=== PATIENT | female | born 1935 | race Hispanic/Latino ===

== ENCOUNTER 2021-07-14 11:29 | Emergency (ER) | payer MEDICARE ==
[~2021-07-14] VITALS: Ht 154.9 cm; Wt 51.7 kg
[2021-07-14 12:24] LABS: BASOPHILS % (AUTO) 0.1 % (0.0-5.0); HEMATOCRIT 39.3 % (36-48); LYMPHOCYTES % (AUTO) 10.9 % (21.0-51.0); MEAN CORPUSCULAR HEMOGLOBIN 27.1 pg (27.0-33.0); MEAN CORPUSCULAR HGB CONC 32.6 g/dL (32.0-36.0); MEAN CORPUSCULAR VOLUME 83.3 fL (79-99); MONOCYTES % (AUTO) 6.2 % (3.0-13.0); NEUTROPHILS % (AUTO) 82.4 % (40.0-77.0); PLATELET COUNT (AUTO) 212 K/uL (130-400); RED BLOOD CELL COUNT(AUTO) 4.72 MIL/uL (4.00-5.50); RED CELL DISTRIBUTION WIDTH 14.7 % (11.0-15.5); WHITE BLOOD COUNT (AUTO) 8.5 K/uL (4.8-10.8)
[2021-07-14] MEDS ORDERED: LACTATED RINGERS 1000ML 1,000 ML IV ONE (12:30)
[2021-07-14 12:50] LABS: POTASSIUM 3.3 mmol/L (3.5-5.1)
[2021-07-14 13:01] LABS: BILIRUBIN,TOTAL 0.4 mg/dL (0.2-1.0); TOTAL PROTEIN, SERUM 7.8 g/dL (6.0-8.3)
[2021-07-14 13:29] LABS: APPEARANCE,URINE Clear (CLEAR); BILIRUBIN,URINE Negative (NEGATIVE); COLOR,URINE Yellow (YELLOW); GLUCOSE, URINE (UA) Negative (NEGATIVE); KETONES,URINE 15 mg/dL (NEGATIVE); LEUKOCYTE ESTERASE ,URINE Negative (NEGATIVE); NITRATE,URINE Negative (NEGATIVE); OCCULT BLOOD,URINE Trace (NEGATIVE); PROTEIN,URINE Negative (NEGATIVE); UROBILINOGEN,URINE 0.2 mg/dL (0.2-1.0)
[2021-07-14 13:53] LABS: BACTERIA,URINE Rare /HPF (None Seen); RBC,URINE 0-1 /HPF (0-1); SQUAMOUS EPITHELIAL CELL,UR Rare /HPF (0-2); WBC,URINE 0-1 /HPF (0-1)
[2021-07-14 14:06] VITALS: BP 129/76
== END 2021-07-14 15:09 | disposition home or self-care (01) ==
LOC: EDH 11:29
DX: N39.0 Urinary tract infection, site not specified (principal); I10 Essential (primary) hypertension; K21.9 Gastro-esophageal reflux disease without esophagitis
CPT/HCPCS: 36415; 71045; 80053; 81001; 84484; 85025; 96360; 99284; J7120; 93005

== ENCOUNTER 2025-06-02 13:37 | Emergency (ER) | payer MEDICARE ==
[~2025-06-02] VITALS: Ht 152.4 cm; Wt 49.9 kg
--- NOTE | 2025-06-02 14:09 | EKG ---
[facility] Test Date: 2025-06-02 Test Time: 14:01:44 Pat Name: AUNDREA RICHEYES Department: [facility] Room: Gender: F Transcribing Operators Supervisor: [id number] : [phone] Requested By: ANA ROSA BARBOUR Order Number: [id number] Reading MD: Shorty Foster Measurements Intervals [place] Rate: 66 P: 34 [place]: 149 QRS: 41 QRSD: 73 T: 59 QT: 411 QTc: 431 Interpretive Statements Sinus rhythm No previous ECG available for comparison Electronically Signed On 06-02-2025 20:05:11 [employer]OX SHOOK PATCHER by Shorty Foster Please click the below link to view image of tracing.
[2025-06-02 14:24] LABS: IMMATURE GRANULOCYTE ABSOLUTE 0.02 K/uL (0-1); NUCLEATED RED BLOOD CELLS 0.0 % (0.0-0.19); PLATELET COUNT (AUTO) 197 K/uL (130-400); RED BLOOD CELL COUNT(AUTO) 4.41 MIL/uL (4.00-5.50); RED CELL DISTRIBUTION WIDTH 12.9 % (11.0-15.5); WHITE BLOOD COUNT (AUTO) 4.7 K/uL (4.8-10.8)
[2025-06-02 14:25] LABS: CREATININE 1.0 mg/dL (0.5-1.0); GLOMERULAR FILTR. RATE CALC 54.0 mL/min (>90); GLUCOSE,RANDOM 94.0 mg/dL (70-105); SODIUM SERUM 136.0 mmol/L (136-145); UREA NITROGEN, BLOOD 20.0 mg/dL (7-18)
[2025-06-02] MEDS: FAMOTIDINE 20MG VIAL IV ONE (14:28)
[2025-06-02 14:29] LABS: ASPARTATE AMINOTRANSFERASE 20.0 U/L (10-37); TOTAL PROTEIN, SERUM 7.3 g/dL (6.0-8.3)
[2025-06-02 15:33] LABS: ADD UA MICROSCOPIC YES; APPEARANCE,URINE CLEAR (CLEAR); GLUCOSE, URINE (UA) NEGATIVE (NEGATIVE); LEUKOCYTE ESTERASE ,URINE 25 Leu/uL (NEGATIVE); NITRATE,URINE NEGATIVE (NEGATIVE); OCCULT BLOOD,URINE MODERATE (NEGATIVE)
[2025-06-02 15:34] LABS: SQUAMOUS EPITHELIAL CELL,UR RARE /HPF (0-2); WBC CLUMP RARE /HPF (0-1)
--- NOTE | 2025-06-02 15:40 | ERN ---
ED Note History of Present Illness Stated Complaint: ABDOMINAL PAIN Chief Complaint: Abdominal Pain Time Seen by MD: 13:44 Time Seen by Midlevel: 13:48 Dictation: 89 Year old female complaining of the epigastric pain. Patient states she has a history of gastritis, lately in the last couple of days he has had trouble eating regular foods that she has had two boil your her food. Patient states a Pepto-Bismol yesterday, and starts complaining of woman episode of brown with darker stool. Denies any bright red blood or melena. Allergies: Coded Allergies: No Allergy Information Available (Verified Allergy, Unknown, 07/14/21) Past Medical History Past Medical History: GERD, High Cholesterol, Hypertension Surgical History: None Social History: Negative Review of System Dictation Constitutional: Negative for fever,chills, and weight loss Eyes: Negative for injury, pain,redness, and discharge ENT: Negative for injury,pain or swelling Cardiovascular: Negative for chest pain, palpitations, and edema Respiratory: Negative for shortness of breath, cough, and wheezing, Abdomen/GI: Negative for abdominal pain, nausea, vomiting, diarrhea, and constipation Back: Negative for injury and pain : Negative for injury, bleeding and discharge MS/Extremity: Negative for injury and deformity Skin: Negative for rash, and discoloration Neuro: Negative for headache, weakness, numbness, tingling, and seizure Psych: Negative for suicide ideation, homicidal ideation, and hallucinations Review of Systems: was completed Initial Vital Sign VS Vital Signs Date Time Temp Pulse Resp B/P (MAP) Pulse Ox O2 Delivery O2 Flow Rate FiO2 06/02/25 13:50 97.9 72 20 168/72 98 Room Air 0 06/02/25 14:39 21 Physical Exam Dictation Normal General: awake, alert, NAD Head/Face: Normocephalic, atraumatic Eyes: PERRL, EOMI, vision at baseline ENT: oral cavity clear, TMs clear, no signs of infection Neck: Trachea midline, supple, no nuchal rigidity Cardiovascular: RRR, normal S1/S2, No MRGs, no JVD Respiratory: CTAB, no respiratory distress, No rales or wheezes Abdomen: Soft, non-tender, non-distended, normal bowel sounds, no guarding or rebound. Skin: Warm, dry, normal turgor, no rash MS/Extremity: Pulses equal, no cyanosis, neurovascular intact, FROM Neuro: COAx4, GCS 15, strength 5/5, CN 2-12 intact, normal cerebellar exam, normal gait, Psych: Normal behavior, mood, and affect normal Results (Laboratory/Radiology) Laboratory/Radiology Laboratory Tests Test 06/02/25 04:02 06/02/25 14:07 06/02/25 14:50 Troponin I High Sensitivity 5 ng/L (4-50) White Blood Count 4.7 K/uL (4.8-10.8) L Red Blood Count 4.41 MIL/uL (4.00-5.50) Hemoglobin 12.8 g/dL (12.0-16.0) Hematocrit 38.4 % (36-48) Mean Corpuscular Volume 87.1 fL (79-99) Mean Corpuscular Hemoglobin 29.0 pg (27.0-33.0) Mean Corpuscular Hemoglobin Concent 33.3 g/dL (32.0-36.0) Red Cell Distribution Width 12.9 % (11.0-15.5) Platelet Count 197 K/uL (130-400) Mean Platelet Volume 9.9 fL (7.5-10.5) Immature Granulocyte % (Auto) 0.4 % (0-1) Neutrophils (%) (Auto) 70.5 % (40.0-77.0) Lymphocytes (%) (Auto) 21.5 % (21.0-51.0) Monocytes (%) (Auto) 7.2 % (3.0-13.0) Eosinophils (%) (Auto) 0.2 % (0.0-8.0) Basophils (%) (Auto) 0.2 % (0.0-5.0) Neutrophils # (Auto) 3.3 K/uL (1.8-7.7) Lymphocytes # (Auto) 1.0 K/uL (1.0-4.8) Monocytes # (Auto) 0.3 K/uL (0.1-1.0) Eosinophils # (Auto) 0.01 K/uL (0.00-0.70) Basophils # (Auto) 0.01 K/uL (0.00-0.20) Absolute Immature Granulocyte (auto 0.02 K/uL (0-1) Nucleated Red Blood Cells 0.0 % (0.0-0.19) Sodium Level 136 mmol/L (136-145) Potassium Level 3.8 mmol/L (3.5-5.1) Chloride Level 101 mmol/L (101-111) Carbon Dioxide Level 25 mmol/L (21-32) Blood Urea Nitrogen 20 mg/dL (7-18) H Creatinine 1.0 mg/dL (0.5-1.0) Glomerular Filtration Rate Calc 54 mL/min (>90) Random Glucose 94 mg/dL (70-105) Total Calcium 9.3 mg/dL (8.5-10.1) Total Bilirubin 0.5 mg/dL (0.2-1.0) Direct Bilirubin 0.1 mg/dL (0.0-0.3) Aspartate Amino Transf (AST/SGOT) 20 U/L (10-37) Alanine Aminotransferase (ALT/SGPT) 13 U/L (12-78) Alkaline Phosphatase 67 U/L (50-136) Total Protein 7.3 g/dL (6.0-8.3) Albumin 3.7 g/dL (3.5-5.0) Lipase 37 U/L (16-77) Urine Color LIGHT-YELLOW (YELLOW) Urine Appearance CLEAR (CLEAR) Urine pH 5.5 (5.0-8.0) Urine Specific [place] 1.010 (1.001-1.031) Urine Protein 10 mg/dL (NEGATIVE) H Urine Glucose (UA) NEGATIVE mg/dL (NEGATIVE) Urine Ketones 10 mg/dL (NEGATIVE) H Urine Occult Blood MODERATE (NEGATIVE) H Urine Nitrate NEGATIVE (NEGATIVE) Urine Bilirubin NEGATIVE mg/dL (NEGATIVE) Urine Urobilinogen 0.2 mg/dL (0.2-1.0) Urine Leukocyte Esterase 25 [place]/uL (NEGATIVE) H Urine RBC 11-25 /HPF (0-1) H Urine WBC 6-10 /HPF (0-1) H Urine WBC Clumps (Auto) RARE /HPF (0-1) Urine Squamous Epithelial Cells RARE /HPF (0-2) Urine Bacteria None /HPF (None Seen) Labs Reviewed?: Yes EKG Comment: 1401, rate of 66, normal sinus rhythm. ED Course ED Course Orders Procedure Category Date Status Time Cbc With Differential LAB 06/02/25 Complete 14:01 Basic Metabolic Panel LAB 06/02/25 Complete 14:01 Hepatic Function Panel LAB 06/02/25 Complete 14:01 Lipase LAB 06/02/25 Complete 14:01 12 Lead Ekg Tracing- EKG 06/02/25 Complete Technical 14:01 Chest 1vw RAD 06/02/25 Resulted 14:01 Urinalysis Profile LAB 06/02/25 Complete 14:01 Ondansetron 4mg Inj PHA 06/02/25 Complete (Zofran 4mg Inj) 14:30 Famotidine 20mg Vial PHA 06/02/25 Complete (Pepcid 20mg Vial) 14:30 Culture Urine MAURA 06/02/25 In Process 15:35 0.9%Nacl 1000ml (Ns PHA 06/02/25 In Process 1000ml) 16:08 Troponin I High LAB 06/02/25 Complete Sensitivity 16:09 Current Medications Medications (Trade) Dose Ordered Sig/[place] Route PRN Reason Start Time Stop Time Status Last Admin Dose Admin Famotidine (Pepcid 20mg Vial) 20 mg ONCE ONCE IV 06/02/25 14:30 06/02/25 14:31 DC 06/02/25 14:28 Ondansetron HCl (zoFRAN 4MG INJ) 4 mg ONCE ONCE IVP 06/02/25 14:30 06/02/25 14:31 DC 06/02/25 14:28 Sodium Chloride 1,000 ml @ 500 mls/hr Q2H STAT IV 06/02/25 16:08 06/02/25 18:07 06/02/25 16:44 Vital Signs Date Time Temp Pulse Resp B/P (MAP) Pulse Ox O2 Delivery O2 Flow Rate FiO2 06/02/25 14:39 98.4 65 20 189/67 97 Room Air* 0 21 06/02/25 13:50 97.9 72 20 168/72 98 Room Air 0 Medical Decision Making MDM MDM: 89 Year old female complaining of the epigastric pain. Patient states she has a history of gastritis, lately in the last couple of days he has had trouble eating regular foods that she has had two boil your her food. Patient states a Pepto-Bismol yesterday, and starts complaining of woman episode of brown with darker stool. Denies any bright red blood or melena. Unremarkable. After antiacid in his Zofran patient states he feels much better. Educated patient that I will discharge her to follow up outpatient with her PCP and possibly revisit a appeals board referee for her gastritis. Patient verbalized understanding, answered all questions. Differential diagnosis:, ACS, dehydration, pancreatitis Rationale: Tests considered and ordered secondary to shared decision making include: Previous outside records reviewed: Old ER visits. Risk of complication and/or morbidity or mortality of patient management: None Medications-Per medication reconciliation Need for hospitalization: Patient does not meet criteria for hospitalization. Need for emergency major/minor surgery: No There are no social concerns with this patient. Prescription drug management Prescriptions will include symptomatic care Patient's prior external medical records from other ER visits were reviewed by me as indicated. Prior testing and results from previous visits were reviewed. Prior tests were taken into account with medical decision making and resource utilization, independent historian/historians were used to obtain complete medical history. I independently interpreted the test that were performed, results were reviewed by me and considered findings on radiology if ordered. Medical management and examination interpretation discussions were had by me with other qualified healthcare professionals as indicated for the patient's care. DX & DISP Disposition: Discharge Departure Impression: Primary Impression: Gastritis Condition: Stable Scripts Famotidine (Pepcid) 20 Mg Tablet 1 TAB PO BID for 30 Days, #60 TAB 0 Refills Prov: ANA ROSA ABRBOUR CNP 06/02/25 Additional Instructions: Please follow up with the your PCP and or with the appeals board referee. If you have any worsening symptoms please return back to the emergency room. Referrals: SONG HASSAN MD (PCP) Time of Disposition: 17:02 I have reviewed the case, and I agree with, Diagnosis and Plan ANA ROSA BARBOUR TODDLER LEAD TEACHER Jun 02, 2025 15:40
--- NOTE | 2025-06-02 15:59 | HMCIMG ---
EXAM: CR Chest, 1 View. CLINICAL HISTORY: sob COMPARISON: None provided. FINDINGS: LUNGS: There is no mass, infiltrate, or acute pulmonary abnormality. PLEURAL SPACES: No pleural effusion or pneumothorax. MEDIASTINUM: The cardiomediastinal silhouette is within normal limits. BONES: No aggressive appearing osseous lesion seen. IMPRESSION: No acute cardiopulmonary pathology is evident. /[place]
[2025-06-02] MEDS: 0.9%NACL 1000ML 1,000 ML IV STA (16:44)
[2025-06-02] MEDS ORDERED: FAMO-136 PO (17:02)
[2025-06-02 18:03] VITALS: BP 182/64; PULSE 71; RESP 19; TEMP 98.9; O2SAT 98
--- NOTE | 2025-06-02 18:06 | NUR ---
DC PATIENT WAS DC'D BY ANA ROSA BARBOUR CNP PER ANA ROSA CNP, PATIENT DID NOT HAVE UTI, I DC'D PATIENTS IV WITH CATH STILL INTACT AND APPLIED 2X2 GAUZE WITH COBAN I EXPLAINED TO PATIENT AND SON AT BEDSIDE FOR PATIENT TO FOLLOW UP WITH PCP, PROVIDED INFO BASED ON DIAGNOSIS, PRESCRIPTIONS AND ASNWERED ANY FOLLOW UP QUESTIONS PATIENT WAS TAKEN OUT OF ED VIA WHEELCHAIR, NO COMPLICATIONS
== END 2025-06-02 18:05 | disposition home or self-care (01) ==
LOC: EDH 13:37
DX: K29.70 Gastritis, unspecified, without bleeding (principal); E78.00 Pure hypercholesterolemia, unspecified; I10 Essential (primary) hypertension
CPT/HCPCS: 99285; 96374; 71045; 96361; 96375; 80076; 84484; 80048; 83690; 85025; 87086; 81001; 36415; 93005; J1308; J7030; J2405